=== PATIENT | female | born 1975 | race Caucasian/White ===

== ENCOUNTER 2020-05-16 10:51 | Observation (INO) ==
[~2020-05-16 10:51] MED LIST: NS 0.9% IVPB ONE; VANCOMYCIN IVPB ONE
[2020-05-16] MEDS ORDERED: Buffered Lidocaine 1% SYRIN 1 ml INTRADERM ONE (11:06)
[2020-05-16] MEDS ORDERED: Bacitracin INJECTION 50,000 UNITS ONE (13:19)
[2020-05-16] MEDS ORDERED: HYDROcodone/ACETAMIN 5/325 mg TAB PO PRN ×3 (13:34→17:03)
[2020-05-16] MEDS ORDERED: fentaNYL 100 mcg/2 ml 50 MCG/ML VIAL IV PRN (13:34)
[2020-05-16] MEDS ORDERED: Naloxone 0.4 mg VIAL 0.4 mg/ml 1 ml VIAL IV PRN (13:34)
[2020-05-16] MEDS ORDERED: Ondansetron 4 mg VIAL 2 MG/ML 2 ml VIAL IV PRN ×2 (13:34→17:03)
[2020-05-16] MEDS ORDERED: DiMENhydriNATE IV 50 mg/ml 1 ml VIAL IV PUSH PRN (13:34)
[2020-05-16] MEDS ORDERED: Propofol 10 MG/ML 20 ML BTL ONE ×2 (13:44→17:02)
[2020-05-16] MEDS ORDERED: Ondansetron 4 mg VIAL 2 MG/ML 2 ml VIAL ONE ×2 (13:44→17:10)
[2020-05-16] MEDS ORDERED: Succinylcholine 200 mg VIAL 20 mg/ml 10 ml VIAL (200 mg) ONE (13:44)
[2020-05-16] MEDS ORDERED: Lidocaine 2% PF 5 ML VIAL ONE ×2 (13:44→14:09)
[2020-05-16] MEDS ORDERED: Rocuronium 50 mg VIAL 10 mg/ml 5 ml VIAL (50 mg) ONE (13:44)
[2020-05-16] MEDS ORDERED: Dexamethasone IV 4 MG/ML VIAL 1 ml VIAL ONE ×2 (13:44→14:59)
[2020-05-16] MEDS ORDERED: Ketamine HCL 50 mg/ml 10 ml VIAL (500 MG) ONE (13:45)
[2020-05-16] MEDS ORDERED: Midazolam 2 mg/2 ml VIAL 1 mg/ml 2 ml VIAL (2 mg) ONE (13:48)
[2020-05-16] MEDS ORDERED: fentaNYL 250 mcg/5 ml 50 MCG/ML 5 ml VIAL (250 MCG) ONE (13:48)
[2020-05-16] MEDS ORDERED: Glycopyrrolate IV 0.2 MG/ML 1 ML VIAL ONE (14:59)
[2020-05-16] MEDS ORDERED: Acetaminophen IV 1 GM/100ML 100 ML ONE (14:59)
[2020-05-16] MEDS ORDERED: fentaNYL 100 mcg/2 ml 50 MCG/ML VIAL ONE (15:37)
[2020-05-16] MEDS ORDERED: hydrALAZINE 20 mg/ml 1 ML Vial IV ONE (16:32)
[2020-05-16] MEDS ORDERED: HYDROmorphone 1 MG/1 ML SYRINGE ONE (16:32)
[2020-05-16] MEDS ORDERED: Magnesium Hydroxide LIQ 30 ML UDC PO PRN (17:03)
[2020-05-16] MEDS ORDERED: DiMENhydriNATE IV 50 mg/ml 1 ml VIAL ONE (17:13)
[2020-05-16] MEDS ORDERED: Haloperidol 5 mg/ml SDV IV/IM 5 MG/ML AMP ONE (17:44)
[2020-05-16] MEDS ORDERED: Metoclopramide 5 MG/ML VIAL (10 mg) IV SLOW PU PRN (18:38)
[2020-05-16] MEDS ORDERED: Haloperidol 5 mg/ml SDV IV/IM 5 MG/ML AMP IV SLOW PU ONE (19:05)
[2020-05-16] MEDS: Lactated Ringers 1000 ml BAG 1,000 ML IV SCH (19:49)
[2020-05-17] MEDS: Lactated Ringers 1000 ml BAG 1,000 ML IV SCH (03:57)
[2020-05-17 05:51] LABS: ABS Basophils 0.1 10^3/ul (0-0.2); ABS Lymphocytes 1.7 10^3/ul (1.0-4.8); ABS Monocytes 0.6 10^3/ul (0-0.8); Hematocrit 35 % (35-47); Hemoglobin 11.7 g/dL (12.0-16.0); Mean Corpuscular HGB Conc 33 g/dL (31-36); Mean Corpuscular Hemoglobin 30 pg (27-31); Mean Corpuscular Volume 91 fL (80-97); Mean Platelet Volume 7.4 fL (7.4-10.4); Platelet Count 306 10^3/uL (150-450); Red Blood Count 3.83 10^6 /uL (3.70-4.87); Red Cell Distribution Width 14 % (10-15); White Blood Count 12.7 10^3/uL (3.5-10.8)
[2020-05-17 06:24] LABS: Calcium 8.6 mg/dL (8.6-10.3); EGFR African American 124.8 (>60); EGFR Non-African American 103.1 (>60); Potassium 4.2 mmol/L (3.5-5.0)
[2020-05-17 07:44] VITALS: BP 140/78
== END 2020-05-17 10:50 | disposition home or self-care (01) ==
LOC: OR 10:51 → SSU 10:51
PROVIDERS: ADMIT Neurological Surgery; ATTEND Neurological Surgery